=== PATIENT | male | born 1975 | race African-American/Black ===

== ENCOUNTER 2018-01-26 16:46 | Emergency (ER) | payer MEDICAID, OTHER ==
[~2018-01-26] VITALS: Ht 170.2 cm; Wt 61.9 kg
[2018-01-26] MEDS ORDERED: HALO5TAB2 PO (17:27)
[2018-01-26] MEDS ORDERED: RISP1 PO (17:27)
[2018-01-26 18:00] LABS: INR 0.9 (0.9-1.1); PROTHROMBIN TIME 9.9 SEC (9.4-11.6)
[2018-01-26 18:03] LABS: BASOPHILS % (AUTO) 0.5 % (0.0-2.0); EOSINOPHILS % (AUTO) 4.8 % (1.0-6.0); HEMATOCRIT 35.8 % (41-53); HEMOGLOBIN 11.9 g/dL (13.5-17.5); LYMPHOCYTES # (AUTO) 2.3 K/uL (1.0-4.8); LYMPHOCYTES % (AUTO) 37.6 % (22.0-44.0); MEAN CORPUSCULAR HEMOGLOBIN 30.1 pg (26.0-34.0); MEAN CORPUSCULAR HGB CONC 33.1 G/dL (31.0-37.0); MEAN CORPUSCULAR VOLUME 91 fL (80-100); MONOCYTES # (AUTO) 0.6 K/uL (0.1-1.0); MONOCYTES % (AUTO) 8.9 % (2.0-9.0); NEUTROPHILS % (AUTO) 48.2 % (40.0-70.0); PLATELET COUNT (AUTO) 227 K/uL (150-450); RED BLOOD CELL COUNT(AUTO) 3.95 MIL/uL (4.50-5.90)
[2018-01-26 18:04] LABS: ANION GAP 3 mmol/L (8-16); CALCIUM, TOTAL 9.4 mg/dL (8.8-10.5); CARBON DIOXIDE 31 mmol/L (22-29); CHLORIDE 104 mmol/L (98-107); CREATININE 0.91 mg/dL (0.60-1.30); GLOMERULAR FILTR. RATE CALC > 60 mL/min (>60); GLUCOSE,RANDOM 87 mg/dL (70-110); POTASSIUM 4.3 mmol/L (3.5-5.1); SODIUM SERUM 138 mmol/L (136-145); UREA NITROGEN, BLOOD 23 mg/dL (7-18)
[2018-01-26 18:33] LABS: ALANINE AMINOTRANSFERASE 33 U/L (12-78); ALBUMIN 3.3 g/dL (3.4-5.0); ALKALINE PHOSPHATASE 69 U/L (46-116); ASPARTATE AMINOTRANSFERASE 20 U/L (15-37); BILIRUBIN,TOTAL 0.2 mg/dL (0.1-1.0); CREATINE KINASE MB 1.1 ng/mL (0-5); CREATINE KINASE, TOTAL 220 U/L (39-308); TOTAL PROTEIN, SERUM 6.8 g/dL (6.4-8.2)
[2018-01-26] MEDS: ACETAMINOPHEN 500 MG TABLET PO ONE ×2 (19:38→20:08)
[2018-01-26 20:11] VITALS: BP 135/78
== END 2018-01-26 21:24 | disposition home or self-care (01) ==
LOC: EMS 16:47
DX: R07.89 Other chest pain (principal); M25.511 Pain in right shoulder; J45.909 Unspecified asthma, uncomplicated; F12.90 Cannabis use, unspecified, uncomplicated; F17.210 Nicotine dependence, cigarettes, uncomplicated; Z88.6 Allergy status to analgesic agent; Z88.8 Allergy status to other drugs, medicaments and biological substances; Y35.893A Legal intervention involving other specified means, suspect injured, initial encounter; Y93.89 Activity, other specified; Y92.89 Other specified places as the place of occurrence of the external cause; Y99.8 Other external cause status
CPT/HCPCS: 93005; 99285; 99406

== ENCOUNTER 2018-06-09 20:54 | Inpatient (IN) | payer MEDICAID, OTHER ==
[~2018-06-09] VITALS: Ht 170.2 cm; Wt 67.6 kg
[~2018-06-09 20:54] MED LIST: RISP1 PO
[2018-06-09] MEDS ORDERED: DIPH50 PO (21:27)
[2018-06-09] MEDS ORDERED: HALO5TAB2 PO (21:27)
[2018-06-09 21:50] LABS: BASOPHILS % (AUTO) 0.8 % (0.0-2.0); EOSINOPHILS % (AUTO) 7.1 % (1.0-6.0); HEMATOCRIT 38.2 % (41-53); HEMOGLOBIN 12.8 g/dL (13.5-17.5); LYMPHOCYTES # (AUTO) 2.6 K/uL (1.0-4.8); LYMPHOCYTES % (AUTO) 44.5 % (22.0-44.0); MEAN CORPUSCULAR HEMOGLOBIN 29.4 pg (26.0-34.0); MEAN CORPUSCULAR HGB CONC 33.4 G/dL (31.0-37.0); MEAN CORPUSCULAR VOLUME 88 fL (80-100); MONOCYTES # (AUTO) 0.6 K/uL (0.1-1.0); MONOCYTES % (AUTO) 10.2 % (2.0-9.0); NEUTROPHILS # (AUTO) 2.2 K/uL (1.8-7.7); NEUTROPHILS % (AUTO) 37.4 % (40.0-70.0); PLATELET COUNT (AUTO) 160 K/uL (150-450); RED BLOOD CELL COUNT(AUTO) 4.34 MIL/uL (4.50-5.90); RED CELL DISTRIBUTION WIDTH 14.4 % (11.5-14.5)
[2018-06-09 21:59] LABS: ANION GAP 7 mmol/L (8-16); CALCIUM, TOTAL 8.7 mg/dL (8.8-10.5); CARBON DIOXIDE 31 mmol/L (22-29); CHLORIDE 102 mmol/L (98-107); CREATININE 0.97 mg/dL (0.60-1.30); GLOMERULAR FILTR. RATE CALC > 60 mL/min (>60); GLUCOSE,RANDOM 94 mg/dL (70-110); POTASSIUM 3.3 mmol/L (3.5-5.1); SODIUM SERUM 140 mmol/L (136-145); UREA NITROGEN, BLOOD 16 mg/dL (7-18)
[2018-06-09 22:05] LABS: ALANINE AMINOTRANSFERASE 34 U/L (12-78); ALBUMIN 3.7 g/dL (3.4-5.0); ALKALINE PHOSPHATASE 83 U/L (46-116); ASPARTATE AMINOTRANSFERASE 75 U/L (15-37); BILIRUBIN,TOTAL 0.3 mg/dL (0.1-1.0); TOTAL PROTEIN, SERUM 7.3 g/dL (6.4-8.2)
[2018-06-10] MEDS ORDERED: DiphenhydrAMINE HCL 25 MG CAPSULE PO PRN
[2018-06-10] MEDS: HALOPERIDOL 5 MG TABLET PO PRN (01:12)
[2018-06-10 01:16] VITALS: BP 146/69
[2018-06-10] MEDS ORDERED: DiphenhydrAMINE HCL 50 MG CAPSULE PO PRN (02:15)
[2018-06-10] MEDS ORDERED: PNEUMOCOCCAL VACCINE POLYVALENT 0.5 ML VIAL [PPSV23] IM ONE (02:30)
[2018-06-10] MEDS ORDERED: GuaiFENesin/D-METHORPHAN [SUGAR-FREE] 200-20MG/10 ML SYRUP UDCUP PO PRN (06:45)
[2018-06-10] MEDS ORDERED: MAG HYDROX/AL HYDROX/SIMETH ES 30 ML SUSPENSION UDCUP PO PRN (06:45)
[2018-06-10] MEDS ORDERED: MAGNESIUM HYDROXIDE SUSPENSION 30 ML UDCUP PO PRN (06:45)
[2018-06-10] MEDS ORDERED: DOCUSATE SODIUM 100 MG CAPSULE PO PRN (06:45)
[2018-06-10] MEDS ORDERED: POTASSIUM CHLORIDE 20 MEQ ER TABLET PO ONE (06:45)
[2018-06-10] MEDS ORDERED: ONDANSETRON HCL 4 MG TABLET PO PRN (06:45)
[2018-06-10] MEDS ORDERED: ALBUTEROL SULFATE HFA 90 MCG/PUFF 8 GM INHALER IH PRN (06:45)
[2018-06-10] MEDS ORDERED: ACETAMINOPHEN 325 MG TABLET PO PRN (06:45)
[2018-06-10] MEDS ORDERED: CloNIDine HCL 0.1 MG TABLET PO PRN (06:45)
[2018-06-10] MEDS ORDERED: LOPERAMIDE HCL 2 MG CAPSULE PO PRN (06:45)
[2018-06-10] MEDS ORDERED: PETROLATUM,WHITE 71 GM JELLY TP PRN (06:45)
[2018-06-10 08:01] VITALS: BP 138/85
[2018-06-10 16:12] VITALS: BP 136/87
[2018-06-10] MEDS: HALOPERIDOL 5 MG TABLET PO SCH (17:57)
[2018-06-11 01:48] VITALS: BP 121/79
[2018-06-11 08:10] VITALS: BP 131/92
[2018-06-11] MEDS: HALOPERIDOL 5 MG TABLET PO SCH ×3 (09:00→17:01)
[2018-06-11 17:36] VITALS: BP 116/73
[2018-06-11] MEDS: ZOLPIDEM TARTRATE 10 MG TABLET PO PRN (21:26)
[2018-06-12 02:49] VITALS: BP 123/82
[2018-06-12 08:03] VITALS: BP 113/76
[2018-06-12] MEDS: HALOPERIDOL 5 MG TABLET PO SCH ×2 (09:36→16:39)
[2018-06-12] MEDS: NICOTINE 14 MG/24 HOUR PATCH TD SCH (10:34)
[2018-06-12 16:00] VITALS: BP 130/84
[2018-06-12] MEDS: ZOLPIDEM TARTRATE 10 MG TABLET PO PRN (20:28)
[2018-06-13 04:55] VITALS: BP 123/70
[2018-06-13 08:10] VITALS: BP 110/79
[2018-06-13] MEDS: NICOTINE 14 MG/24 HOUR PATCH TD SCH (08:42)
[2018-06-13] MEDS: HALOPERIDOL 5 MG TABLET PO SCH (08:42)
[2018-06-13] MEDS: HALOPERIDOL 5 MG TABLET PO PRN (10:02)
[2018-06-13 16:20] VITALS: BP 108/66
[2018-06-13] MEDS: ZOLPIDEM TARTRATE 10 MG TABLET PO PRN (20:53)
[2018-06-13] MEDS: HALOPERIDOL 10 MG TABLET PO SCH (20:53)
[2018-06-14 04:16] VITALS: BP 107/74
[2018-06-14 08:00] VITALS: BP 119/67
[2018-06-14] MEDS: HALOPERIDOL 10 MG TABLET PO SCH ×2 (09:20→20:35)
[2018-06-14] MEDS: NICOTINE 14 MG/24 HOUR PATCH TD SCH (09:20)
[2018-06-14 16:00] VITALS: BP 113/79
[2018-06-14] MEDS: ZOLPIDEM TARTRATE 10 MG TABLET PO PRN (20:35)
[2018-06-15 05:02] VITALS: BP 113/69
[2018-06-15 08:10] VITALS: BP 112/67
[2018-06-15] MEDS: NICOTINE 14 MG/24 HOUR PATCH TD SCH (09:01)
[2018-06-15] MEDS: HALOPERIDOL 10 MG TABLET PO SCH ×2 (09:01→20:32)
[2018-06-15 16:00] VITALS: BP 119/72
[2018-06-15] MEDS: DIVALPROEX SODIUM 500 MG ER TABLET PO SCH (16:40)
[2018-06-16 04:07] VITALS: BP 127/82
[2018-06-16] MEDS: DIVALPROEX SODIUM 500 MG ER TABLET PO SCH ×2 (08:40→16:56)
[2018-06-16] MEDS: NICOTINE 14 MG/24 HOUR PATCH TD SCH (08:40)
[2018-06-16] MEDS: HALOPERIDOL 10 MG TABLET PO SCH ×2 (08:40→20:32)
[2018-06-16 09:11] VITALS: BP 104/69
[2018-06-16 16:41] VITALS: BP 116/72
[2018-06-17 06:20] VITALS: BP 110/71
[2018-06-17 08:10] VITALS: BP 112/70
[2018-06-17] MEDS: HALOPERIDOL 10 MG TABLET PO SCH ×2 (08:56→21:04)
[2018-06-17] MEDS: DIVALPROEX SODIUM 500 MG ER TABLET PO SCH ×2 (08:56→17:07)
[2018-06-17] MEDS: NICOTINE 14 MG/24 HOUR PATCH TD SCH (08:56)
[2018-06-17 16:00] VITALS: BP 111/70
[2018-06-17] MEDS: ZOLPIDEM TARTRATE 10 MG TABLET PO PRN (21:04)
[2018-06-18 07:10] VITALS: BP 118/75
[2018-06-18 08:09] VITALS: BP 115/72
[2018-06-18 08:48] LABS: BASOPHILS % (AUTO) 0.9 % (0.0-2.0); EOSINOPHILS % (AUTO) 5.2 % (1.0-6.0); HEMATOCRIT 43.2 % (41-53); HEMOGLOBIN 14.3 g/dL (13.5-17.5); LYMPHOCYTES # (AUTO) 1.8 K/uL (1.0-4.8); MEAN CORPUSCULAR HEMOGLOBIN 29.9 pg (26.0-34.0); MEAN CORPUSCULAR HGB CONC 33.2 G/dL (31.0-37.0); MEAN CORPUSCULAR VOLUME 90 fL (80-100); MONOCYTES # (AUTO) 0.4 K/uL (0.1-1.0); MONOCYTES % (AUTO) 8.7 % (2.0-9.0); NEUTROPHILS # (AUTO) 2.3 K/uL (1.8-7.7); NEUTROPHILS % (AUTO) 47.2 % (40.0-70.0); PLATELET COUNT (AUTO) 253 K/uL (150-450); RED CELL DISTRIBUTION WIDTH 14.3 % (11.5-14.5)
[2018-06-18 09:00] LABS: ALANINE AMINOTRANSFERASE 28 U/L (12-78); ALBUMIN 3.4 g/dL (3.4-5.0); ALKALINE PHOSPHATASE 64 U/L (46-116); ANION GAP 7 mmol/L (8-16); ASPARTATE AMINOTRANSFERASE 16 U/L (15-37); BILIRUBIN,TOTAL 0.2 mg/dL (0.1-1.0); CALCIUM, TOTAL 9.1 mg/dL (8.8-10.5); CARBON DIOXIDE 28 mmol/L (22-29); CHLORIDE 102 mmol/L (98-107); CREATININE 1.07 mg/dL (0.60-1.30); GLOMERULAR FILTR. RATE CALC > 60 mL/min (>60); GLUCOSE,RANDOM 74 mg/dL (70-110); POTASSIUM 4.4 mmol/L (3.5-5.1); SODIUM SERUM 137 mmol/L (136-145); TOTAL PROTEIN, SERUM 7.5 g/dL (6.4-8.2); UREA NITROGEN, BLOOD 24 mg/dL (7-18); VALPROIC ACID 53 mcg/mL (50-100)
[2018-06-18] MEDS: DIVALPROEX SODIUM 500 MG ER TABLET PO SCH ×2 (09:50→17:09)
[2018-06-18] MEDS: NICOTINE 14 MG/24 HOUR PATCH TD SCH (09:50)
[2018-06-18] MEDS: HALOPERIDOL 10 MG TABLET PO SCH ×2 (09:50→20:17)
[2018-06-18 16:00] VITALS: BP 103/69
[2018-06-18] MEDS: ZOLPIDEM TARTRATE 10 MG TABLET PO PRN (20:17)
[2018-06-19 06:30] VITALS: BP 116/72
[2018-06-19 08:08] VITALS: BP 111/63
[2018-06-19] MEDS: DIVALPROEX SODIUM 500 MG ER TABLET PO SCH ×2 (08:42→17:07)
[2018-06-19] MEDS: HALOPERIDOL 10 MG TABLET PO SCH ×2 (08:42→20:41)
[2018-06-19] MEDS: NICOTINE 14 MG/24 HOUR PATCH TD SCH (08:44)
[2018-06-19 16:10] VITALS: BP 113/76
[2018-06-19] MEDS: ZOLPIDEM TARTRATE 10 MG TABLET PO PRN (20:40)
[2018-06-20 06:36] VITALS: BP 118/65
[2018-06-20] MEDS: NICOTINE 14 MG/24 HOUR PATCH TD SCH (08:58)
[2018-06-20] MEDS: HALOPERIDOL 10 MG TABLET PO SCH ×2 (08:58→20:27)
[2018-06-20] MEDS: DIVALPROEX SODIUM 500 MG ER TABLET PO SCH ×2 (08:58→16:26)
[2018-06-20 09:17] VITALS: BP 107/68
[2018-06-20 17:56] VITALS: BP 112/62
[2018-06-21 06:33] VITALS: BP 118/65
[2018-06-21 08:41] VITALS: BP 118/68
[2018-06-21] MEDS: HALOPERIDOL 10 MG TABLET PO SCH ×2 (08:43→20:20)
[2018-06-21] MEDS: DIVALPROEX SODIUM 500 MG ER TABLET PO SCH ×2 (08:43→16:19)
[2018-06-21] MEDS: NICOTINE 14 MG/24 HOUR PATCH TD SCH (08:43)
[2018-06-21 16:25] VITALS: BP 109/76
[2018-06-21] MEDS: ZOLPIDEM TARTRATE 10 MG TABLET PO PRN (20:35)
[2018-06-22 06:22] VITALS: BP 112/68
[2018-06-22 08:08] VITALS: BP 115/70
[2018-06-22] MEDS: DIVALPROEX SODIUM 500 MG ER TABLET PO SCH ×2 (08:36→17:09)
[2018-06-22] MEDS: HALOPERIDOL 10 MG TABLET PO SCH ×2 (08:36→20:43)
[2018-06-22] MEDS: NICOTINE 14 MG/24 HOUR PATCH TD SCH (08:36)
[2018-06-22 16:21] VITALS: BP 109/62
[2018-06-22] MEDS: ZOLPIDEM TARTRATE 10 MG TABLET PO PRN (20:43)
[2018-06-23 03:29] VITALS: BP 111/77
[2018-06-23] MEDS: HALOPERIDOL 10 MG TABLET PO SCH ×2 (08:09→20:54)
[2018-06-23] MEDS: DIVALPROEX SODIUM 500 MG ER TABLET PO SCH ×2 (08:09→17:22)
[2018-06-23] MEDS: NICOTINE 14 MG/24 HOUR PATCH TD SCH (08:09)
[2018-06-23 08:10] VITALS: BP 114/66
[2018-06-23 16:00] VITALS: BP 108/68
[2018-06-23] MEDS: ZOLPIDEM TARTRATE 10 MG TABLET PO PRN (20:54)
[2018-06-24 06:33] VITALS: BP 112/77
[2018-06-24 08:07] VITALS: BP 112/62
[2018-06-24] MEDS: HALOPERIDOL 10 MG TABLET PO SCH ×2 (08:42→21:23)
[2018-06-24] MEDS: DIVALPROEX SODIUM 500 MG ER TABLET PO SCH ×2 (08:42→17:15)
[2018-06-24] MEDS: NICOTINE 14 MG/24 HOUR PATCH TD SCH (09:11)
[2018-06-24 16:00] VITALS: BP 116/66
[2018-06-24] MEDS: ZOLPIDEM TARTRATE 10 MG TABLET PO PRN (21:23)
[2018-06-25 06:47] VITALS: BP 124/86
[2018-06-25 08:09] VITALS: BP 112/70
[2018-06-25] MEDS: DIVALPROEX SODIUM 500 MG ER TABLET PO SCH ×2 (08:17→17:07)
[2018-06-25] MEDS: HALOPERIDOL 10 MG TABLET PO SCH ×2 (08:17→20:49)
[2018-06-25] MEDS: NICOTINE 14 MG/24 HOUR PATCH TD SCH (08:21)
[2018-06-25 16:00] VITALS: BP 105/72
[2018-06-25] MEDS: ZOLPIDEM TARTRATE 10 MG TABLET PO PRN (20:49)
[2018-06-26 08:27] VITALS: BP 110/58
[2018-06-26] MEDS: NICOTINE 14 MG/24 HOUR PATCH TD SCH (09:14)
[2018-06-26] MEDS: HALOPERIDOL 10 MG TABLET PO SCH ×2 (09:14→20:24)
[2018-06-26] MEDS: DIVALPROEX SODIUM 500 MG ER TABLET PO SCH ×2 (09:14→17:14)
[2018-06-26 16:00] VITALS: BP 110/73
[2018-06-27 00:02] VITALS: BP 113/68
[2018-06-27] MEDS: ZOLPIDEM TARTRATE 10 MG TABLET PO PRN ×2 (00:04→20:48)
[2018-06-27 08:39] VITALS: BP 127/88
[2018-06-27] MEDS: HALOPERIDOL 10 MG TABLET PO SCH ×2 (09:09→20:26)
[2018-06-27] MEDS: DIVALPROEX SODIUM 500 MG ER TABLET PO SCH ×2 (09:09→16:44)
[2018-06-27] MEDS: NICOTINE 14 MG/24 HOUR PATCH TD SCH (09:10)
[2018-06-27 17:16] VITALS: BP 108/70
[2018-06-28 07:19] VITALS: BP 111/73
[2018-06-28] MEDS ORDERED: HALO10 PO (08:18)
[2018-06-28] MEDS ORDERED: DIVA500T52 PO (08:18)
[2018-06-28 08:26] VITALS: BP 134/75
[2018-06-28] MEDS: DIVALPROEX SODIUM 500 MG ER TABLET PO SCH (08:56)
[2018-06-28] MEDS: HALOPERIDOL 10 MG TABLET PO SCH (08:56)
[2018-06-28] MEDS: NICOTINE 14 MG/24 HOUR PATCH TD SCH (09:00)
== END 2018-06-28 13:15 | disposition home or self-care (01) | DRG 750 ==
LOC: EMS 20:55 → B3A 06-10 00:09 → B2S 06-27 00:17
PROVIDERS: ADMIT Psychiatry & Neurology Psychiatry; ATTEND Psychiatry & Neurology Psychiatry
DX: F20.0 Paranoid schizophrenia (principal); E46 Unspecified protein-calorie malnutrition; R45.851 Suicidal ideations; R74.0 Nonspecific elevation of levels of transaminase and lactic acid dehydrogenase [LDH]; D64.9 Anemia, unspecified; F12.90 Cannabis use, unspecified, uncomplicated; Z28.21 Immunization not carried out because of patient refusal; Z88.8 Allergy status to other drugs, medicaments and biological substances; F17.210 Nicotine dependence, cigarettes, uncomplicated; J45.909 Unspecified asthma, uncomplicated; E87.6 Hypokalemia; F15.10 Other stimulant abuse, uncomplicated; Z68.23 Body mass index [BMI] 23.0-23.9, adult
CPT/HCPCS: G0480

== ENCOUNTER 2021-05-23 03:53 | Emergency (ER) | payer MEDICAID, OTHER ==
[~2021-05-23] VITALS: Ht 170.2 cm; Wt 67.5 kg
[~2021-05-23 03:53] MED LIST changes: +DIVA-80 PO; +HALO10 PO; -RISP1 PO
[2021-05-23 05:10] LABS: BASOPHILS % (AUTO) 0.7 % (0.0-2.0); HEMATOCRIT 41.6 % (41-53); HEMOGLOBIN 13.8 g/dL (13.5-17.5); LYMPHOCYTES # (AUTO) 1.3 K/uL (1.0-4.8); LYMPHOCYTES % (AUTO) 29.7 % (22.0-44.0); MEAN CORPUSCULAR HEMOGLOBIN 29.1 pg (26.0-34.0); MEAN CORPUSCULAR HGB CONC 33.1 G/dL (31.0-37.0); MEAN CORPUSCULAR VOLUME 88 fL (80-100); MONOCYTES # (AUTO) 0.3 K/uL (0.1-1.0); MONOCYTES % (AUTO) 6.2 % (2.0-9.0); NEUTROPHILS # (AUTO) 2.5 K/uL (1.8-7.7); NEUTROPHILS % (AUTO) 56.4 % (40.0-70.0); PLATELET COUNT (AUTO) 253 K/uL (150-450); RED BLOOD CELL COUNT(AUTO) 4.74 MIL/uL (4.50-5.90)
[2021-05-23 05:14] LABS: ANION GAP 6 mmol/L (8-16); CALCIUM, TOTAL 8.9 mg/dL (8.8-10.5); CARBON DIOXIDE 33 mmol/L (22-29); CHLORIDE 98 mmol/L (98-107); GLOMERULAR FILTR. RATE CALC > 60 mL/min (>60); GLUCOSE,RANDOM 117 mg/dL (70-110); POTASSIUM 3.7 mmol/L (3.5-5.1); SODIUM SERUM 137 mmol/L (136-145); UREA NITROGEN, BLOOD 25 mg/dL (7-18)
[2021-05-23 05:17] LABS: AMPHET/METH SCREEN,URINE POSITIVE (NEGATIVE); BARBITURATE SCREEN, URINE NEGATIVE (NEGATIVE); BENZODIAZEPINES SCREEN,URINE NEGATIVE (NEGATIVE); CANNABINOID SCREEN,URINE POSITIVE (NEGATIVE); COCAINE SCREEN,URINE NEGATIVE (NEGATIVE); METHADONE SCREEN, URINE NEGATIVE (NEGATIVE); OPIATE SCREEN,URINE NEGATIVE (NEGATIVE)
[2021-05-23 05:18] LABS: PHENCYCLIDINE SCREEN,URINE NEGATIVE (NEGATIVE)
[2021-05-23 05:21] LABS: ALANINE AMINOTRANSFERASE 40 U/L (12-78); ALBUMIN 3.8 g/dL (3.4-5.0); ALKALINE PHOSPHATASE 96 U/L (46-116); ASPARTATE AMINOTRANSFERASE 39 U/L (15-37); BILIRUBIN,TOTAL 0.2 mg/dL (0.1-1.0); TOTAL PROTEIN, SERUM 7.8 g/dL (6.4-8.2)
[2021-05-23 08:58] VITALS: BP 158/102
[2021-05-23] MEDS ORDERED: NALOXONE HCL 1 MG/ML 2 ML SYG IVP ONE (09:15)
[2021-05-23] MEDS: NALOXONE HCL 1 MG/ML 2 ML SYG IVP ONE ×2 (10:11→10:26)
== END 2021-05-23 10:28 | disposition home or self-care (01) ==
LOC: EMS 03:55
DX: R41.82 Altered mental status, unspecified (principal); F15.10 Other stimulant abuse, uncomplicated; F11.10 Opioid abuse, uncomplicated; J45.909 Unspecified asthma, uncomplicated; F20.9 Schizophrenia, unspecified; F12.90 Cannabis use, unspecified, uncomplicated; F17.210 Nicotine dependence, cigarettes, uncomplicated; Z88.6 Allergy status to analgesic agent; Z88.8 Allergy status to other drugs, medicaments and biological substances; Z79.899 Other long term (current) drug therapy
CPT/HCPCS: 36415; 80053; 80307; 85025; 96374; 99285; G0480; J2310

== ENCOUNTER 2022-04-02 02:40 | Emergency (ER) | payer OTHER ==
[~2022-04-02] VITALS: Ht 170.2 cm; Wt 65.0 kg
[~2022-04-02 02:40] MED LIST changes: -HALO10 PO; +HALO10TA21 PO
[2022-04-02 03:57] LABS: APPEARANCE,URINE CLEAR (CLEAR); BILIRUBIN,URINE NEGATIVE (NEGATIVE); GLUCOSE, URINE (UA) NEGATIVE (NEGATIVE); KETONES,URINE NEGATIVE (NEGATIVE); LEUKOCYTE ESTERASE ,URINE MODERATE (NEGATIVE); NITRATE,URINE NEGATIVE (NEGATIVE); OCCULT BLOOD,URINE MODERATE (NEGATIVE); PROTEIN,URINE TRACE mg/dL (NEGATIVE); SPECIFIC GRAVITIY, URINE 1.009 (1.003-1.030); UROBILINOGEN,URINE <=1.0 mg/dL (<=1.0)
[2022-04-02 04:09] LABS: BACTERIA,URINE None Seen /HPF (None Seen); SQUAMOUS EPITHELIAL CELL,UR Rare /LPF (None Seen)
[2022-04-02 04:15] LABS: BASOPHILS % (AUTO) 0.6 % (0.0-2.0); EOSINOPHILS % (AUTO) 6.3 % (1.0-6.0); LYMPHOCYTES # (AUTO) 1.9 K/uL (1.0-4.8); LYMPHOCYTES % (AUTO) 22.9 % (22.0-44.0); MEAN CORPUSCULAR HEMOGLOBIN 29.5 pg (26.0-34.0); MEAN CORPUSCULAR HGB CONC 33.3 G/dL (31.0-37.0); MEAN CORPUSCULAR VOLUME 89 fL (80-100); MONOCYTES # (AUTO) 0.7 K/uL (0.1-1.0); MONOCYTES % (AUTO) 8.5 % (2.0-9.0); NEUTROPHILS # (AUTO) 5.2 K/uL (1.8-7.7); NEUTROPHILS % (AUTO) 61.7 % (40.0-70.0); PLATELET COUNT (AUTO) 277 K/uL (150-450); RED BLOOD CELL COUNT(AUTO) 3.73 MIL/uL (4.50-5.90); RED CELL DISTRIBUTION WIDTH 13.1 % (11.5-14.5)
[2022-04-02 04:22] LABS: CALCIUM, TOTAL 9.1 mg/dL (8.8-10.5); CREATININE 1.56 mg/dL (0.60-1.30); POTASSIUM 3.8 mmol/L (3.5-5.1)
[2022-04-02] MEDS ORDERED: CEPH-558 PO (04:26)
[2022-04-02 04:28] LABS: ALBUMIN 2.7 g/dL (3.4-5.0); BILIRUBIN,TOTAL 0.2 mg/dL (0.1-1.0); TOTAL PROTEIN, SERUM 6.4 g/dL (6.4-8.2)
[2022-04-02] MEDS ORDERED: CEPHALEXIN MONOHYDRATE 500 MG CAPSULE PO ONE (04:30)
[2022-04-02 05:00] VITALS: BP 127/79
== END 2022-04-02 05:30 | disposition home or self-care (01) ==
LOC: EMS 02:41
DX: N39.0 Urinary tract infection, site not specified (principal); J45.909 Unspecified asthma, uncomplicated; F20.9 Schizophrenia, unspecified; F17.210 Nicotine dependence, cigarettes, uncomplicated; F12.90 Cannabis use, unspecified, uncomplicated; F15.90 Other stimulant use, unspecified, uncomplicated; F11.90 Opioid use, unspecified, uncomplicated; Z88.6 Allergy status to analgesic agent; Z88.5 Allergy status to narcotic agent; Z98.890 Other specified postprocedural states
CPT/HCPCS: 80053; 81001; 83690; 85025; 87086; 93005; 99284